=== PATIENT | female | born 1995 | race Caucasian/White ===

== ENCOUNTER → 2018-12-09 | Outpatient (CLI) | payer MEDICAID ==
--- NOTE | 2018-12-09 15:54 | Diagnostic Imaging Report ---
INDICATION: survey. TECHNIQUE: Multiple real-time grayscale images were obtained over the gravid uterus. COMPARISON: None FINDINGS: There is a single live fetus in a transverse presentation. heart rate was recorded at 150 beats per minute. Placenta is posterior. Amniotic fluid volume is normal. survey demonstrates kidneys, bladder and stomach to be unremarkable. brain is unremarkable. Four-chamber heart view is limited due to position. There is a three-vessel cord with normal insertion. spine evaluation is also limited due to lie. Biometrical measurements are as follows: Biparietal 4.51 cm, age 19 weeks 5 days. Head circumference 16.70 cm, age 19 weeks 3 days. Abdominal circumference 14.23 cm, age 19 weeks 5 days. Femur length 3.03 cm, age 19 weeks 3 days. Sonographic estimate age: 19 weeks 4 days. Sonographic estimated date of delivery: 05/01/2019. Estimated Weight: 295 gm (+/- 43 gm). LMP percentile: 40%. heart rate: 150 beats per minute. number: 1 of 1. IMPRESSION: Single live IUP 19 weeks 4 days gestational age. Estimated date of confinement sonographically is 05/01/2019. survey is unremarkable although the four-chamber heart view and spine evaluation was limited due to position. Dictated by: Dictated on workstation # [id number]
== END ==
LOC: RAD 14:04
PROVIDERS: ATTEND Obstetrics & Gynecology
DX: Z34.92 Encounter for supervision of normal pregnancy, unspecified, second trimester (principal); Z3A.19 19 weeks gestation of pregnancy
CPT/HCPCS: 76805

== ENCOUNTER → 2019-02-19 | Outpatient (CLI) | payer MEDICAID ==
--- NOTE | 2019-02-19 12:43 | Diagnostic Imaging Report ---
INDICATION: Follow-up anatomy. TECHNIQUE: Multiple real-time grayscale images were obtained over the gravid uterus. COMPARISON: 12/09/2018. FINDINGS: There is a single live fetus in a cephalic presentation. heart rate was recorded at 142 beats per minute. Placenta is posterior. Amniotic fluid index is 14.7 cm. A four-chamber heart view is visualized on today's study. spine is unremarkable. Cervical length is 4.6 cm. IMPRESSION: Unremarkable Limited obstetrical ultrasound. Four-chamber heart view and spine are unremarkable. Dictated by: Dictated on workstation # [id number]
== END ==
LOC: RAD 10:17
PROVIDERS: ATTEND Nurse Practitioner Women's Health
DX: O99.330 Smoking (tobacco) complicating pregnancy, unspecified trimester (principal); Z3A.00 Weeks of gestation of pregnancy not specified
CPT/HCPCS: 76816

== ENCOUNTER 2019-04-23 23:39 | Inpatient (IN) | payer MEDICAID ==
[~2019-04-23] VITALS: Ht 165.1 cm; Wt 79.7 kg
--- NOTE | 2019-04-23 23:49 | NUR ---
JILLIAN HIDALGO presented to unit via wheelchair from ED, accompanied by OB nurse and S/O, with c/o CONTRACTIONS,WATER BROKE. JILLIAN HIDALGO weighed, gowned, voided, and to bed. EFHM and TOCO applied, VS taken. JILLIAN HIDALGO oriented to bed controls, call light, TV, heat, and A/C controls.
[2019-04-23 23:50] VITALS: BP 124/76
[2019-04-24] VITALS (59 sets, daily range): BP systolic 95–180; BP diastolic 53–144
[2019-04-24] MEDS ORDERED: AMPICILLIN FOR IV USE 2,000 MG in WATER (STERILE) FOR INJECTION 14.8 ML IV SCH (00:14)
[2019-04-24] MEDS ORDERED: MINERAL OIL CONCENTRATE 99.9% 15 ML UDC TOP PRN (00:15)
[2019-04-24] MEDS ORDERED: LACTATED RINGERS 1,000 ML IV SCH ×2 (00:18→05:37)
[2019-04-24] MEDS ORDERED: MISOPROSTOL 100 MCG (CYTOTEC) TAB PO ONE (00:30)
[2019-04-24] MEDS ORDERED: TERBUTALINE INJ 1 MG/ML (BRETHINE) AMP SC PRN (00:30)
[2019-04-24 00:40] LABS: BASOPHILS % (AUTO) 0 % (0-10); EOSINOPHILS # (AUTO) 0.1 10^3/uL (0.0-0.3); EOSINOPHILS % (AUTO) 1 % (0-10); HEMATOCRIT 30 % (35-52); HEMOGLOBIN 10.2 G/DL (11.5-16.0); LYMPHOCYTES # (AUTO) 2.6 X 10^3 (1.0-4.0); LYMPHOCYTES % (AUTO) 26 % (12-44); MEAN CORPUSCULAR HGB CONC 34 G/DL (32-36); MEAN CORPUSCULAR VOLUME 85 FL (80-99); MEAN PLATELET VOLUME 11.7 FL (7.4-10.4); MONOCYTES # (AUTO) 0.8 X 10^3 (0.0-1.0); MONOCYTES % (AUTO) 8 % (0-12); NEUTROPHILS # (AUTO) 6.6 X 10^3 (1.8-7.8); NEUTROPHILS % (AUTO) 66 % (42-75); PLATELET COUNT 184 10^3/uL (130-400); RED CELL DISTRIBUTION WIDTH 13.3 % (10.0-14.5)
[2019-04-24 00:42] LABS: MEAN CORPUSCULAR HEMOGLOBIN 28 PG (25-34)
[2019-04-24] MEDS ORDERED: WATER (STERILE) FOR INJECTION 20 ML ONE (00:56)
[2019-04-24] MEDS ORDERED: AMPICILLIN FOR IV USE 2,000 MG VIAL ONE (00:56)
[2019-04-24] MEDS ORDERED: CALCIUM CARBONATE 500 MG (TUMS) TAB.CHEW ONE (01:48)
[2019-04-24] MEDS ORDERED: CALCIUM CARBONATE 500 MG (TUMS) TAB.CHEW PO ONE (01:55)
[2019-04-24] MEDS ORDERED: morphine INJ 10 MG/ML 1ML (SYR OR VIAL) ONE (02:18)
[2019-04-24] MEDS ORDERED: morphine INJ 10 MG/ML 1ML (SYR OR VIAL) IV ONE (02:39)
[2019-04-24] MEDS: D5 LR IV SOLUTION 1,000 ML IV SCH ×2 (03:15→11:59)
[2019-04-24] MEDS ORDERED: MISOPROSTOL 100 MCG (CYTOTEC) TAB PO SCH (04:30)
[2019-04-24] MEDS ORDERED: fentaNYL INJECTION 100 MCG/2 ML AMP ONE (04:47)
[2019-04-24] MEDS ORDERED: BUPIVACAINE 0.25% 30 ML (SENSORCAINE) VIAL ONE (04:47)
[2019-04-24] MEDS ORDERED: SUFENTA 0.6MCG/ML BUPIVA 0.125 100 ML ONE (04:50)
[2019-04-24] MEDS ORDERED: ONDANSETRON 4 MG/2 ML (SDV) Z0FRAN IV PRN (05:45)
[2019-04-24] MEDS ORDERED: NALOXONE 0.4 MG/ML 1 ML (NARCAN) VIAL IV PRN ×2 (05:45)
[2019-04-24] MEDS ORDERED: diphenhydrAMINE 50 MG/ML INJ (BENADRYL) IV PRN (05:45)
[2019-04-24] MEDS ORDERED: METOCLOPRAMIDE INJ 10 MG/2 ML (REGLAN) IV PRN (05:45)
[2019-04-24] MEDS ORDERED: EPIDURAL (SUFENTA 0.6MCG/ML BUPIVA 0.125%) 100 ML BAG EPI PRN (05:45)
[2019-04-24] MEDS: AMPICILLIN FOR IV USE 1,000 MG in WATER (STERILE) FOR INJECTION 7.4 ML IV SCH ×2 (05:51→09:47)
[2019-04-24] MEDS ORDERED: CATHETER FLUSH 10 ML SYR IV SCH (06:00)
--- NOTE | 2019-04-24 07:15 | NUR ---
THIS RN TO BEDSIDE WITH PREVIOUS RN, SELF INTRODUCED. PT EXHAUSTED AND HASN'T SLEPT ALL NIGHT, PREPPING TO GO TO SLEEP.
[2019-04-24] MEDS ORDERED: OXYTOCIN PRE-MIX DRIP 500 ML IV ONE (10:00)
[2019-04-24] MEDS ORDERED: LIDOCAINE/EPI 2% 1:200,00 (XYLOCAINE) 10 ML VIAL ONE (11:05)
--- NOTE | 2019-04-24 12:16 | History & Physical-OB ---
OB - Chief Complaint & HPI Date/Time Date of Admission: Date of Admission: Apr 23, 2019 at 23:59 Date seen by a Provider: Apr 24, 2019 Time Seen by a Provider: 08:40 Chief Complaint/History OB-Reason for Admission/Chief: Rupture of Membranes (39 week gestation/GBS +) Hx : 2 Hx Para: 1 Expected Date of Delivery: May 01, 2019 Gestational Age in Weeks: 38 Gestational Age in Days: 6 Other reason for admission: Presented for SROm at home. Originally thought she did not have ROm and amnioswab was negative. but then she had large gush of clear fluids. Admitted for induction/augmentation. Will start ampicillin for GBS prophylaxis and then start misoprostol for cervical ripening. Anticipate . Peds - [facility]/NLP uncomplicated She is Admission Nurse Assessment Rev: Yes History of Labs O+,- GBS + HIV - HbSAq - Hep C - Rub I VDRL NR Allergies and Home Medications Allergies Coded Allergies: No Known Drug Allergies (Unverified , 04/23/19) Patient Home Medication List Home Medication List Reviewed: Yes OB - History Hx of Present Care: Yes Ultrasounds: Normal mid trimester US Obstetrical Complications: None Medical Complications: None Obstetrical History Hx : 2 Hx Para: 1 Hx Termination: No Hx Total # of Abortions (Spona: 0 Delivery History Hx Dystocia: No Hx Forceps Assisted Delivery: No Hx Vacuum Extraction Assisted: No Hx Placenta Abnormality: No Hx Distress: No Patient Past Medical History NC Social History/Family History HIV/AIDS: No Recent Infectious Disease Expo: No Sexually Transmitted Disease: Yes (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 Also chlamydia treated, [facility] -) Alcohol Use: Denies Use Recreational Drug Use: No 2nd Hand Smoke Exposure: No Immunizations Date of Influenza Vaccine: Jan 22, 2019 OB - Admission Exam Physical Exam Vitals: Vital Signs 04/24/19 04/24/19 09:50 10:40 Temp 36.3 Pulse 98 Resp 18 B/P (MAP) 122/69 (86) Pulse Ox 100 O2 Delivery Room Air HEENT: NCAT Heart: Other Lungs: Clear Abdomen: Gravid Extremities: Edema (1+) Reflexes: Normal Cervical Dilatation: 6cm Effacement: 75% Station: -2 Membranes: Ruptured Amniotic Fluid: Clear Heart Rate: 140's Accelerations: Accelerations Present Decelerations: No Decelerations Short Term Variability: Present Teenage Program Director Variability: Average (6-25) Contractions on Admission: 6-10 Minutes Apart Labs Laboratory Tests Test 04/24/19 00:30 Range/Units White Blood Count 10.0 4.3-11.0 10^3/uL Red Blood Count 3.58 L 4.35-5.85 10^6/uL Hemoglobin 10.2 L 11.5-16.0 G/DL Hematocrit 30 L 35-52 % Mean Corpuscular Volume 85 80-99 FL Mean Corpuscular Hemoglobin 28 25-34 PG Mean Corpuscular Hemoglobin Concent 34 32-36 G/DL Red Cell Distribution Width 13.3 10.0-14.5 % Platelet Count 184 130-400 10^3/uL Mean Platelet Volume 11.7 H 7.4-10.4 FL Neutrophils (%) (Auto) 66 42-75 % Lymphocytes (%) (Auto) 26 12-44 % Monocytes (%) (Auto) 8 0-12 % Eosinophils (%) (Auto) 1 0-10 % Basophils (%) (Auto) 0 0-10 % Neutrophils # (Auto) 6.6 1.8-7.8 X 10^3 Lymphocytes # (Auto) 2.6 1.0-4.0 X 10^3 Monocytes # (Auto) 0.8 0.0-1.0 X 10^3 Eosinophils # (Auto) 0.1 0.0-0.3 10^3/uL Basophils # (Auto) 0.0 0.0-0.1 10^3/uL OB - Assessment/Plan/Diagnosis Assessment Assessment: group B positive strep, rupture of membranes Admission Dx 1. spontaneous rupture of membranes 2. 39 1/7 week gestation Plan admission with Ampicillin treatment for prophylaxis. Induction as she was not myla regularly at admission. Anticipate Peds - [facility] Will us NLP Admission Status: Inpatient Order (span 2 midnights) Reason for Inpatient Admission: Labor Plan Plan: Expectant Management, Induction DERIC FLOREZ DO Apr 24, 2019 12:16
[2019-04-24] MEDS: OXYTOCIN PRE-MIX DRIP 500 ML IV SCH ×2 (12:41→13:13)
--- NOTE | 2019-04-24 13:03 | OB Labor & Delivery Record ---
Vag Delivery Note Vag Delivery Note Date of Delivery: 04/24/19 Preoperative Diagnosis: Dana Lujan is a 23 /Para 2 / 1, Gestational Age 39 1/7 weeks Postoperative Diagnosis: Same Surgeon: DERIC FLOREZ Anesthesia: epidural Delivery Type: vacuum assisted Findings: Viable male infant, apgars 9/9, weight 3180 g Lacerations: none Intact placenta with 3 vessel cord. No nuchal cord, body cord or shoulder dystocia Estimated Blood Loss: 150 ml Complications: None Condition: Stable Description of Procedure: The patient is a 23 year old female who presented with SROM. GBS +, not in labor. She was admitted and informed consent was obtained. Her labor course was remarkable for ampicillin She progressed to complete dilatation and began to p ush. She was then set up for delivery. The infant's head was delivered atraumatically in the OA position. The shoulders and remainder of the 's body were then delivered without difficulty. Upon delivery, the head was held below the level of the perineum and the mouth and nares were bulb suctioned. The cord was doubly clamped and cut and the infant was handed off to the pediatric staff. An intact placenta with 3-vessel cord delivered via Elmer and there was found to be minimal bleeding.~ Vigorous fundal massage was performed and the fundus was found to be firm. IV oxytocin was given. Examination of the vagina and perineum revealed no laceration. Following the delivery, sponge, instrument and needle counts were correct. Mom and baby were both in stable condition in the labor suite. Vitals - Labs Vital Signs - I&O Vital Signs Date Time Temp Pulse Resp B/P (MAP) Pulse Ox O2 Delivery O2 Flow Rate FiO2 04/24/19 10:40 98 18 122/69 (86) 100 Room Air 04/24/19 10:26 91 18 123/66 (85) 99 Room Air 04/24/19 10:22 93 18 114/78 (90) 100 Room Air 04/24/19 10:10 99 18 108/71 (83) 99 Room Air 04/24/19 10:05 96 18 101/65 (77) 98 Room Air 04/24/19 10:00 88 18 104/68 (80) 98 Room Air 04/24/19 09:55 87 18 108/70 (83) 98 Room Air 04/24/19 09:50 36.3 94 18 109/74 (86) 99 Room Air 04/24/19 09:40 85 18 110/70 (83) 97 Room Air 04/24/19 09:11 93 18 114/69 (84) 98 Room Air 04/24/19 08:53 36.7 04/24/19 08:41 103 18 107/69 (82) 98 Room Air 04/24/19 08:25 92 18 98/55 (69) 96 Room Air 04/24/19 08:10 87 18 97/53 (68) 96 Room Air 04/24/19 07:56 89 18 95/53 (67) 96 Room Air 04/24/19 07:40 92 18 101/56 (71) 97 Room Air 04/24/19 07:25 92 18 100/55 (70) 97 Room Air 04/24/19 07:10 90 18 113/74 (87) 98 Room Air 04/24/19 07:00 107 18 110/72 (85) 99 Room Air 04/24/19 06:45 36.4 118 18 113/66 (82) 99 Room Air 04/24/19 06:30 93 18 139/74 (95) 99 Room Air 04/24/19 06:15 86 18 114/71 (85) 98 Room Air 04/24/19 06:00 93 18 125/76 (92) 99 Room Air 04/24/19 05:50 103 18 114/57 (76) 99 Room Air 04/24/19 05:45 93 18 138/76 (96) 98 Room Air 04/24/19 05:40 106 18 140/72 (94) 97 Room Air 04/24/19 05:35 99 20 129/81 (97) 99 Room Air 04/24/19 05:30 109 20 141/84 (103) 99 Room Air 04/24/19 05:25 99 20 129/81 (97) 99 Room Air 04/24/19 05:20 36.7 110 22 139/93 (108) 98 Room Air 04/24/19 05:15 105 20 138/93 (108) 97 Room Air 04/24/19 05:10 95 20 129/73 (91) 98 Room Air 04/24/19 05:05 86 20 131/73 (92) 98 Room Air 04/24/19 04:55 83 18 131/72 (91) Room Air 04/24/19 04:30 83 18 114/75 (88) Room Air 04/24/19 04:00 74 18 113/72 (86) Room Air 04/24/19 03:30 79 18 117/68 (84) Room Air 04/24/19 03:00 83 18 113/62 (79) Room Air 04/24/19 02:30 84 18 122/59 (80) Room Air 04/24/19 02:00 79 18 117/76 (90) Room Air 04/24/19 01:30 87 18 121/59 (79) Room Air 04/24/19 01:00 96 18 127/80 (96) Room Air 04/24/19 00:30 18 Room Air 04/24/19 00:00 36.6 95 18 124/76 (92) 98 Room Air 04/23/19 23:50 36.6 95 18 98 Room Air 04/23/19 23:50 36.6 95 18 98 Room Air I & O 04/24/19 07:00 Intake Total 2022.7 ml Balance 2022.7 ml Labs Laboratory Tests 04/24/19 00:30: White Blood Count 10.0, Red Blood Count 3.58L, Hemoglobin 10.2L, Hematocrit 30L, Mean Corpuscular Volume 85, Mean Corpuscular Hemoglobin 28, Mean Corpuscular Hemoglobin Concent 34, Red Cell Distribution Width 13.3, Platelet Count 184, Mean Platelet Volume 11.7H, Neutrophils (%) (Auto) 66, Lymphocytes (%) (Auto) 26, Monocytes (%) (Auto) 8, Eosinophils (%) (Auto) 1, Basophils (%) (Auto) 0, Neutrophils # (Auto) 6.6, Lymphocytes # (Auto) 2.6, Monocytes # (Auto) 0.8, Eosinophils # (Auto) 0.1, Basophils # (Auto) 0.0 DERIC FLOREZ DO Apr 24, 2019 13:03
[2019-04-24] MEDS ORDERED: BENZOCAINE/MENTHOL (DERMOPLAST) 60 ML CAN TP PRN (13:15)
[2019-04-24] MEDS ORDERED: MEASLES,MUMPS,RUBELLA 1 EA INJ SQ ONE (13:15)
[2019-04-24] MEDS ORDERED: DIBUCAINE (NUPERCAINAL) 1% OINT 30 GM TOP PRN (13:15)
[2019-04-24] MEDS ORDERED: WITCH HAZEL(TUCKS) 40 EA JAR TOP PRN (13:15)
[2019-04-24] MEDS ORDERED: TETANUS,DIPTH,PERTUSS P/F (BOOSTRIX) 0.5 ML VIAL IM ONE (13:15)
[2019-04-24] MEDS ORDERED: IBUPROFEN 600 MG (MOTRIN) TAB PO ONE (14:52)
[2019-04-24] MEDS: ACETAMINOPHEN 500 MG TAB (TYLENOL) PO SCH (14:56)
[2019-04-24] MEDS: IBUPROFEN 600 MG (MOTRIN) TAB PO SCH ×2 (14:56→21:26)
--- NOTE | 2019-04-24 15:10 | NUR ---
REFER TO LABOR FLOW SHEET.
--- NOTE | 2019-04-24 18:18 | NUR ---
PT SITTING UP IN BED, EATING. VS OBTAINED. PT DENIES ANY NEEDS OR QUESTIONS AT THIS TIME. S/O AT THE BEDSIDE. CALL LIGHT WITHIN REACH.
--- NOTE | 2019-04-24 18:47 | NUR ---
VISITORS TO PT'S BEDSIDE.
[2019-04-24] MEDS: CATHETER FLUSH 10 ML SYR IV SCH ×2 (19:38→23:36)
[2019-04-24] MEDS: DOCUSATE SODIUM 100 MG (COLACE) CAP PO SCH (21:26)
[2019-04-25 02:25] VITALS: BP 110/69
[2019-04-25] MEDS: ACETAMINOPHEN 500 MG TAB (TYLENOL) PO SCH ×3 (02:40→16:33)
[2019-04-25] MEDS: IBUPROFEN 600 MG (MOTRIN) TAB PO SCH ×4 (02:40→21:42)
[2019-04-25 04:40] VITALS: BP 112/70
[2019-04-25 05:20] LABS: BASOPHILS % (AUTO) 0 % (0-10); EOSINOPHILS # (AUTO) 0.1 10^3/uL (0.0-0.3); EOSINOPHILS % (AUTO) 1 % (0-10); HEMATOCRIT 28 % (35-52); HEMOGLOBIN 9.1 G/DL (11.5-16.0); LYMPHOCYTES % (AUTO) 21 % (12-44); MEAN CORPUSCULAR HEMOGLOBIN 28 PG (25-34); MEAN CORPUSCULAR HGB CONC 33 G/DL (32-36); MEAN CORPUSCULAR VOLUME 87 FL (80-99); MEAN PLATELET VOLUME 11.5 FL (7.4-10.4); MONOCYTES # (AUTO) 0.7 X 10^3 (0.0-1.0); MONOCYTES % (AUTO) 7 % (0-12); NEUTROPHILS # (AUTO) 6.9 X 10^3 (1.8-7.8); NEUTROPHILS % (AUTO) 72 % (42-75); PLATELET COUNT 173 10^3/uL (130-400); RED CELL DISTRIBUTION WIDTH 13.4 % (10.0-14.5); WHITE BLOOD COUNT 9.6 10^3/uL (4.3-11.0)
--- NOTE | 2019-04-25 09:13 | Postpartum Progress Note ---
Note Note Day # 1 s/p Subjective: Patient is without complaints. Ambulating, voiding. Tolerating a regular diet w ithout nausea or vomiting. Normal lochia. Pain is well controlled with oral pain medications. bottle feeding. [] Objective: 04/24/19 04/25/19 04/25/19 21:26 02:25 04:40 Temp 37.2 36.4 36.9 Pulse 93 88 84 Resp 18 18 18 B/P (MAP) 111/68 (82) 110/69 (83) 112/70 (84) Pulse Ox 97 96 96 O2 Delivery Room Air Room Air Room Air 04/25/19 00:00 Intake Total 1000 ml Balance 1000 ml Laboratory Tests Test 04/25/19 05:09 Range/Units White Blood Count 9.6 4.3-11.0 10^3/uL Red Blood Count 3.20 L 4.35-5.85 10^6/uL Hemoglobin 9.1 L 11.5-16.0 G/DL Hematocrit 28 L 35-52 % Mean Corpuscular Volume 87 80-99 FL Mean Corpuscular Hemoglobin 28 25-34 PG Mean Corpuscular Hemoglobin Concent 33 32-36 G/DL Red Cell Distribution Width 13.4 10.0-14.5 % Platelet Count 173 130-400 10^3/uL Mean Platelet Volume 11.5 H 7.4-10.4 FL Neutrophils (%) (Auto) 72 42-75 % Lymphocytes (%) (Auto) 21 12-44 % Monocytes (%) (Auto) 7 0-12 % Eosinophils (%) (Auto) 1 0-10 % Basophils (%) (Auto) 0 0-10 % Neutrophils # (Auto) 6.9 1.8-7.8 X 10^3 Lymphocytes # (Auto) 2.0 1.0-4.0 X 10^3 Monocytes # (Auto) 0.7 0.0-1.0 X 10^3 Eosinophils # (Auto) 0.1 0.0-0.3 10^3/uL Basophils # (Auto) 0.0 0.0-0.1 10^3/uL Physical Exam: General - Alert and oriented, no apparent distress Abdomen - Soft, appropriately tender to palpation, non-distended, fundus firm at umbilicus Extremities - no edema, negative Florentin's bilaterally Assessment: 1 post- day #1, status post spontaneous vaginal delivery. Recovering well, hemodynamically stable Plan: Routine care. Encourage breast feeding. Encourage ambulation. Ferrous sulfate supplementation. Plan for discharge today or tomorrow Vitals - Labs Vital Signs - I&O Vital Signs Date Time Temp Pulse Resp B/P (MAP) Pulse Ox O2 Delivery O2 Flow Rate FiO2 04/25/19 04:40 36.9 84 18 112/70 (84) 96 Room Air 04/25/19 02:25 36.4 88 18 110/69 (83) 96 Room Air 04/24/19 21:26 37.2 93 18 111/68 (82) 97 Room Air 04/24/19 18:18 36.4 98 18 122/58 (79) 96 Room Air 04/24/19 14:58 36.5 99 18 116/70 (85) 04/24/19 14:40 103 18 103/57 (72) 04/24/19 14:25 36.4 113 18 112/67 (82) 04/24/19 14:10 96 18 110/67 (81) 04/24/19 13:55 89 18 119/72 (88) 04/24/19 13:40 97 18 121/57 (78) 04/24/19 13:25 36.6 103 18 115/64 (81) 04/24/19 13:20 36.7 04/24/19 13:13 36.8 04/24/19 13:10 116 18 115/67 (83) 04/24/19 12:55 36.8 115 18 115/63 (80) 04/24/19 12:48 37.2 04/24/19 12:44 114 18 113/55 (74) 04/24/19 12:40 81 18 180/144 (156) 04/24/19 12:12 126 18 103/57 (72) 04/24/19 11:26 99 18 110/62 (78) 100 Room Air 04/24/19 11:10 91 18 111/70 (84) 100 Room Air 04/24/19 10:55 88 18 115/65 (82) 98 Room Air 04/24/19 10:46 36.2 04/24/19 10:40 98 18 122/69 (86) 100 Room Air 04/24/19 10:26 91 18 123/66 (85) 99 Room Air 04/24/19 10:22 93 18 114/78 (90) 100 Room Air 04/24/19 10:10 99 18 108/71 (83) 99 Room Air 04/24/19 10:05 96 18 101/65 (77) 98 Room Air 04/24/19 10:00 88 18 104/68 (80) 98 Room Air 04/24/19 09:55 87 18 108/70 (83) 98 Room Air 04/24/19 09:50 36.3 94 18 109/74 (86) 99 Room Air 04/24/19 09:40 85 18 110/70 (83) 97 Room Air I & O 04/25/19 07:00 Intake Total 2000 ml Balance 2000 ml Labs Laboratory Tests 04/25/19 05:09: White Blood Count 9.6, Red Blood Count 3.20L, Hemoglobin 9.1L, Hematocrit 28L, Mean Corpuscular Volume 87, Mean Corpuscular Hemoglobin 28, Mean Corpuscular Hemoglobin Concent 33, Red Cell Distribution Width 13.4, Platelet Count 173, Mean Platelet Volume 11.5H, Neutrophils (%) (Auto) 72, Lymphocytes (%) (Auto) 21, Monocytes (%) (Auto) 7, Eosinophils (%) (Auto) 1, Basophils (%) (Auto) 0, Neutrophils # (Auto) 6.9, Lymphocytes # (Auto) 2.0, Monocytes # (Auto) 0.7, Eosinophils # (Auto) 0.1, Basophils # (Auto) 0.0 DERIC FLOREZ DO Apr 25, 2019 09:12
[2019-04-25] MEDS ORDERED: IBUP-844 PO (09:14)
[2019-04-25] MEDS ORDERED: PNV1TABL67 PO (09:14)
[2019-04-25] MEDS ORDERED: DIBU30OI TOP (09:14)
[2019-04-25] MEDS ORDERED: ACET-93 PO (09:14)
[2019-04-25] MEDS ORDERED: FERR325T18 PO (09:14)
--- NOTE | 2019-04-25 09:22 | Discharge Inst-Women's Service ---
Discharge Inst-Women's Serv Depart Medication/Instructions New, Converted or Re-Newed RX: RX on Chart Final Diagnosis spontaneous rupture of membranes GBS + vaginal delivery Problems Reviewed?: Yes Consults/Follow Up Additional Follow Up: Yes (6 weeks) Activity Activity: Activity as Tolerated Driving Instructions: You May Drive NO SMOKING: NO SMOKING Nothing Inside Vagina: No Douching, No Rhodell, No Tampons Diet Discharge Diet: No Restrictions Symptoms to Report to : Swelling Increased, Bleeding Excessive, Pain Increased, Fever Over 101 Degrees F, Vaginal Bleeding Increase, Cramps in Feet or Legs, Vaginal Discharge Foul For Any Problems or Questions: Contact Your Physician Skin/Wound Care Bathing Instructions: DERIC Trujillo DO Apr 25, 2019 09:22
[2019-04-25 09:25] VITALS: BP 116/68
--- NOTE | 2019-04-25 09:25 | NUR ---
dr torres to bedside reviewed poc with patient. this nurse at bedside. fresh ice water given, family present. mom 89 also at bedside. AM meds given denies further need at this time.
[2019-04-25] MEDS: PRENATAL VITAMIN 1 EA TAB PO SCH (09:26)
[2019-04-25] MEDS: DOCUSATE SODIUM 100 MG (COLACE) CAP PO SCH ×2 (09:26→21:41)
[2019-04-25] MEDS: FERROUS SULF 325 MG (IRON) TAB PO SCH (09:26)
[2019-04-25 16:30] VITALS: BP 111/73
[2019-04-25 21:41] VITALS: BP 122/79
[2019-04-26] MEDS: ACETAMINOPHEN 500 MG TAB (TYLENOL) PO SCH ×2 (00:31→08:06)
[2019-04-26 04:55] VITALS: BP 109/77
[2019-04-26] MEDS: IBUPROFEN 600 MG (MOTRIN) TAB PO SCH ×2 (04:55→11:19)
[2019-04-26 08:00] VITALS: BP 118/56
[2019-04-26] MEDS: FERROUS SULF 325 MG (IRON) TAB PO SCH (08:06)
[2019-04-26] MEDS: DOCUSATE SODIUM 100 MG (COLACE) CAP PO SCH (08:06)
[2019-04-26] MEDS: PRENATAL VITAMIN 1 EA TAB PO SCH (08:06)
--- NOTE | 2019-04-26 08:30 | Short Stay Summary ---
Discharge Summary Hospital Course Hospital Course Date of Admission: Apr 23, 2019 at 23:59 Admission Diagnosis : Family Physician/Provider: [facility]Local Physician Date of Discharge: 04/26/19 Discharge Diagnosis: [ ] Hospital Course: [ ] Labs and Pending Lab Test: Home Meds Active Pnv Plus Multivit Tab (Pnv with Ca,No.72/Iron/FA) 1 Each Tablet 1 Ea PO DAILY@0700 Dibucaine 30 Gm Oint 0 Gm TOP UD PRN Acetaminophen 500 Mg Tablet 1,000 Mg PO Q8HR Ibu (Ibuprofen) 600 Mg Tablet 600 Mg PO Q6HR Ferrous Sulfate 325 Mg Tablet 325 Mg PO DAILY Discharge Instructions Discharge Diet: No Restrictions Discharge Physical Examination Allergies: Coded Allergies: No Known Drug Allergies (Unverified , 04/23/19) Discharge Summary Date of Admission Apr 23, 2019 at 23:59 Date of Discharge Clinical Quality Measures DVT/VTE Risk/Contraindication: Risk Factor Score Per Nursin RFS Level Per Nursing on Admit: 1=Low/No VTE PPX DERIC FLOREZ DO Apr 26, 2019 08:30
[2019-04-26 11:30] VITALS: BP 108/71
--- NOTE | 2019-04-26 12:55 | NUR ---
THIS RN GIVES AND EXPLAINS DISCHARGE INSTRUCTIONS TO PT. QUESTIONS ANSWERED. PT VERBALIZES UNDERSTANDING. PRESCRIPTIONS PLACED IN RED FOLDER AND PLACED ON BEDSIDE TABLE FOR PT. THIS RN EXPLAINS ROOMING IN TO PT. PT VERBALIZES UNDERSTANDING.
== END 2019-04-26 12:55 | disposition home or self-care (01) | DRG 807 ==
LOC: WSo 23:39 → LDRP 23:40 → WSo 23:59 → LDRP 23:59
PROVIDERS: ADMIT Obstetrics & Gynecology; ATTEND Obstetrics & Gynecology
PROC: 10D07Z6 Extraction of Products of Conception, Vacuum, Via Natural or Artificial Opening (ICD-10-PCS; principal; 2019-04-24)
DX: O99.824 Streptococcus B carrier state complicating childbirth (principal); Z37.0 Single live birth; Z3A.39 39 weeks gestation of pregnancy
CPT/HCPCS: 36415; 85025; 86850; 86900; 86901; 99212